=== PATIENT | female | born 1955 | race Caucasian/White ===

== ENCOUNTER 2021-07-09 16:14 | Emergency (ER) | payer OTHER ==
[2021-07-09] MEDS ORDERED: Bupivacaine HCl 0.5%/Epinephrine 1:200,000/PF 30 ml Vial ONE (17:03)
== END 2021-07-09 17:46 | disposition home or self-care (01) ==
LOC: MADERS 16:14
DX: K04.7 Periapical abscess without sinus (principal); I10 Essential (primary) hypertension; E78.5 Hyperlipidemia, unspecified; F17.210 Nicotine dependence, cigarettes, uncomplicated
CPT/HCPCS: 41800